=== PATIENT | male | born 1975 | race Caucasian/White ===

== ENCOUNTER 2025-01-15 15:49 | Emergency (ER) | payer OTHER, SELFPAY ==
[2025-01-15 15:57] VITALS: BP 155/107
[2025-01-15 16:16] VITALS: BP 129/93
[2025-01-15 16:27] LABS: Hematocrit 42.6 % (39.0-52.0); Hemoglobin 15.2 g/dL (13.0-18.0); Mean Corp Hgb Conc. 35.7 g/dL (33.0-37.0); Mean Corpuscular Volume 90.8 fL (80.0-94.0); Nucleated Red Blood Cells % 0.2 % (-); Platelet Count 226 10^3/uL (130-400); Red Cell Dist. Width 12.5 % (11.5-14.5)
[2025-01-15 16:44] LABS: ALT (SGPT) 27 U/L (0-50); AST (SGOT) 39 U/L (17-59); Albumin 5.1 g/dl (3.5-5.0); Alkaline Phosphatase 49 U/L (38-126); Blood Urea Nitrogen 10 mg/dl (9-20); Calcium 9.2 mg/dl (8.4-10.2); Carbon Dioxide 26 mmol/L (22-30); Chloride 100 mmol/L (98-107); Glucose 90 mg/dl (70-99); Potassium 4.3 mmol/L (3.5-5.1); Sodium 136 mmol/L (135-145); Total Protein 8.7 g/dl (6.3-8.2); eGFR > 60.00
[2025-01-15 16:52] LABS: Troponin I < 0.012 ng/ml
--- NOTE | 2025-01-15 17:47 | ED.GENMED ---
History of Present Illness
General
Chief Complaint: Chest Pain
Time Seen by Provider: 01/15/25 16:10
History of Present Illness
History of Present Illness:
49-year-old male with no significant past medical history presents to the emergency department for evaluation of abrupt onset of chest discomfort associated with dizziness and anxiety that developed while driving at 11:00 today. The symptoms
improved but did not fully resolved. He went to urgent care where an x-ray was obtained and an EKG and the patient was referred to the emergency department. Patient reports no recent illnesses and denies any associated shortness of breath or heart
palpitations. The chest discomfort remains but is quite minimal at this time
Past History
Past History
ED Past Medical History: None
ED Past Surgical History: None
Social History
Tobacco: Non-smoker
Alcohol: Occasional
Personal: Single
Employment: Employed
Review of Systems
Review of Systems
Allergies reviewed?: Yes
All Other Systems: ROS reviewed and negative except as documented in HPI and ROS
Phy Exam
Physical Exam
Physical Exam:
GEN: Well appearing, NAD, WDWN
HEENT: Oral mucosa moist, no scleral icterus
Cardiac: Regular rate and rhythm, no murmurs
Lung: No respiratory distress, no tachypnea, lungs clear to auscultation
MSK: No gross deformity or injuries
Skin: Good color, no pallor or jaundice, no rashes
Neuro: AO x3, moves all extremities freely
Psych: Calm, cooperative
Scores
Heart Score for Chest Pain Patients
STEMI patient?: No
History: Slightly or Non-Suspicious
ECG: Normal
Age: >45 - <65 years
Risk Factors: No Risk Factors
Troponin: </= Normal Limit
Heart Score for Chest Pain Patients: 1
Heart Score Risk: 2.5% MACE over next 6 weeks
Course
Orders/Labs/Results
Orders:
Orders
01/15/25 15:51
EKG [Electrocardiogram (*1)] Urgent
Reason for Study: Chest Pain
01/15/25 15:52
EKG- Treatment ONCE
01/15/25 16:17
Complete Blood Count/With Diff Urgent
Comprehensive Metabolic Panel Urgent
Troponin I Urgent
Abnormal Lab Results
01/15/25
16:17
WBC 12.0 H 10^3/uL
(4.8-10.8)
RBC 4.69 L 10^6/uL
(4.70-6.10)
MCH 32.4 H pg
(27.0-31.0)
Absolute Neuts (auto) 9.8 H 10^3/uL
(1.4-6.5)
Absolute Monos (auto) 0.8 H 10^3/uL
(0.1-0.6)
Neutrophils % 81.8 H %
(42.2-75.2)
Lymphocytes % 10.6 L %
(20.5-51.1)
Total Protein 8.7 H g/dl
(6.3-8.2)
Albumin 5.1 H g/dl
(3.5-5.0)
01/15/25 16:17
01/15/25 16:17
Vital Signs
Initial and Last Documented VS:
Initial Vital Signs
Temp Pulse Resp BP Pulse Ox
98.5 F 91 16 155/107 99
01/15/25 15:57 01/15/25 15:57 01/15/25 15:57 01/15/25 15:57 01/15/25 15:57
Last Documented Vital Signs
Temp Pulse Resp BP Pulse Ox
98.5 F 89 16 129/93 97
01/15/25 15:57 01/15/25 16:18 01/15/25 16:20 01/15/25 16:16 01/15/25 17:48
MDM/Problems Addressed
MDM/Problems Addressed:
Workup is reassuring, low clinical suspicion for ACS or PE given normal vital signs and reassuring EKG. Certainly could be psychosomatic given the abrupt onset while driving. No indication for admission
Comment
Comment:
EKG independently interpreted by me shows normal sinus rhythm with no concerning ST changes suggestive of ischemia
*Pulse Oximetry
SaO2: 97
Oxygen Mode of Delivery: Room air
Patient hypoxic: no
*Critical Care Note
Total Time (30-74mins, 75-104mins- exclusive of procedures): Not Applicable
ED Attending Note
-
Portions of this chart may have been created with voice recognition software.� Occasional wrong word or��sound alike� substitutions may have occurred due to the inherent limitations of voice recognition software.
Discharge Plan
Departure
Patient Disposition: Home (Routine Discharge)
Date of Disposition: 01/15/25
Time of Disposition: 17:47
Patient with high blood pressure during this ER visit?: No
Discharge Problem:
Atypical chest pain
Instructions: Chest Pain That Is Not Caused by the Heart (DC)
Prescriptions:
No Action
No Current Medications
0
Interventions
Interventions:
*Risk Screen - Suicide Last Done: 01/15/25 15:57
*General Assessment Last Done: 01/15/25 16:20
*Neglect/Abuse Screening Last Done: 01/15/25 15:57
*ED- Fall Risk Assessment Last Done: 01/15/25 16:20
*ED COVID-19 Vaccine History Last Done: 01/15/25 16:20
*ED Influenza Vaccine History Last Done: 01/15/25 16:20
*Nursing Disposition Last Done: 01/15/25 18:29
ED- Cardiac Assessment Last Done: 01/15/25 16:20
Discharge Date and Time
Discharge Date/Time: 01/15/25 18:30
Print Language: [email or web address]
== END 2025-01-15 18:30 | disposition home or self-care (01) ==
LOC: EMR 15:49
PROVIDERS: EMERGENCY PHYSICIAN Emergency Medicine; FAMILY PHYSICIAN Family Medicine
DX: R07.89 Other chest pain (principal)
CPT/HCPCS: 99284; 80053; 84484; 85025; 93005